=== PATIENT | female | born 1970 | race Caucasian/White ===

== ENCOUNTER 2017-01-18 12:15 | Emergency (ER) | payer BC ==
[2017-01-18 13:59] LABS: RED BLOOD COUNT 4.83 M/UL (4.00-5.10); WHITE BLOOD COUNT 6.7 K/UL (4.5-11.0)
[2017-01-18 14:24] LABS: BUN/CREATININE RATIO 17 (0-10)
== END 2017-01-18 17:17 | disposition home or self-care (01) ==
LOC: ER1 12:15
PROVIDERS: Physician Assistant
DX: R07.89 Other chest pain (principal); R55 Syncope and collapse; R00.2 Palpitations; Z88.0 Allergy status to penicillin; Z88.2 Allergy status to sulfonamides; Z88.8 Allergy status to other drugs, medicaments and biological substances; Z79.899 Other long term (current) drug therapy
CPT/HCPCS: 36415; 71010; 80053; 82550; 82553; 83874; 84443; 84484; 85025; 85379; 93005; 99285

== ENCOUNTER 2020-10-30 11:10 | Emergency (ER) | payer BC, OTHER ==
[2020-10-30 12:49] LABS: HEMOGLOBIN 13.6 gm/dl (12.3-15.3); RED BLOOD COUNT 4.69 M/UL (4.00-5.10)
[2020-10-30 13:18] LABS: BUN/CREATININE RATIO 13 (0-10)
[2020-10-30] MEDS ORDERED: BROMFED DM COU473 ML PO (17:38)
[2020-10-30] MEDS ORDERED: VENTOLIN HFA 66.7 GM INH (17:38)
[2020-10-30] MEDS ORDERED: ZITHROMAX250 MG PO (17:38)
== END 2020-10-30 18:04 | disposition home or self-care (01) ==
LOC: ER1 11:10
PROVIDERS: Nurse Practitioner
DX: U07.1 COVID-19 (principal); J12.82 Pneumonia due to coronavirus disease 2019; Z90.89 Acquired absence of other organs; Z90.710 Acquired absence of both cervix and uterus; Z88.2 Allergy status to sulfonamides; F17.290 Nicotine dependence, other tobacco product, uncomplicated; Z79.899 Other long term (current) drug therapy
CPT/HCPCS: 71045; 80053; 82550; 82553; 83605; 83735; 84484; 85025; 85379; 85610; 87040; 93005; 99285; Q9967

== ENCOUNTER → 2021-10-18 | Outpatient (CLI) | payer BC ==
[~2021-10-18] MED LIST: BROMFED DM COU473 ML PO; VENTOLIN HFA 66.7 GM INH; ZITHROMAX250 MG PO
== END ==
LOC: EXRD 12:54
DX: R13.10 Dysphagia, unspecified (principal); E04.2 Nontoxic multinodular goiter
CPT/HCPCS: 76536